=== PATIENT | female | born 1955 | race Caucasian/White ===

== ENCOUNTER 2017-04-09 07:03 | Day surgery (SDC) | payer BC ==
[2017-04-09] MEDS ORDERED: fentaNYL 100 MCG/2 ML SDV ONE (07:06)
[2017-04-09] MEDS ORDERED: Propofol 200 MG/20 ML SDV ONE (07:06)
[2017-04-09] MEDS ORDERED: Midazolam 1 MG/ML 2 ML SDV ONE (07:06)
[2017-04-09] MEDS ORDERED: Lactated Ringers 1,000 ML IV SCH (07:45)
[2017-04-09 09:38] VITALS: BP 102/82
--- NOTE | 2017-04-10 07:52 | OR ---
DATE OF PROCEDURE: 04/09/2017 PREOPERATIVE DIAGNOSIS: History of colon polyps. POSTOPERATIVE DIAGNOSES: 1. Extensive left-sided diverticulosis. 2. Small polyp 20 cm from the anal verge. 3. History of colon polyps. PROCEDURE PERFORMED: Colonoscopy to the cecum with biopsy resection of small polyp 20 cm from the anal verge. ANESTHESIA: IV anesthesia with monitored anesthesia care. INDICATION: This 61-year-old white female is referred for a colonoscopy because of a history of colon polyps. She was supposed to have a colonoscopy, she says, 5 years after her last one, but it has been 7 years since she underwent her last colonoscopy. I counseled her for a colonoscopy with possible biopsy and/or polypectomy including risks and alternatives, and she gave her informed consent to proceed. DESCRIPTION OF PROCEDURE: The patient was placed in the left lateral decubitus position. IV anesthesia was administered by the Anesthesia Service. Time-out was held. A rectal exam was performed, which was unremarkable. The flexible video Olympus colonoscope was introduced through her anus, up her rectum, and out her colon all the way to the cecum. En route, we saw a quite extensive left-sided diverticulosis. There was no bleeding or inflammation associated with the diverticula. Once the cecum was reached, the scope was slowly withdrawn examining the mucosa throughout. No additional mucosal abnormalities were noted until we reached 20 cm from the anal verge. Here, a small polyp was seen, which was removed with several bites of the biopsy forceps. The scope was brought back into the rectum, where it was retroflexed. The distal rectum appeared unremarkable. The scope was straightened and removed. She tolerated the procedure well. Niko Lewis MD /[id number] MTDD
== END 2017-04-09 10:00 | disposition home or self-care (01) ==
LOC: JP.SDS 07:03
PROVIDERS: ATTEND Surgery
DX: Z12.11 Encounter for screening for malignant neoplasm of colon (principal); K63.5 Polyp of colon; K57.30 Diverticulosis of large intestine without perforation or abscess without bleeding; E78.00 Pure hypercholesterolemia, unspecified; Z86.010 Personal history of colon polyps
CPT/HCPCS: 45380; 88305; J2250; J2704; J3010; J7120